=== PATIENT | female | born 1960 | race African-American/Black ===

== ENCOUNTER → 2016-10-22 | Outpatient (CLI) | payer MEDICARE, MEDICAID ==
[~2016-10-22] MED LIST: ATOR40TA16 PO; BENZ1TAB PO; BUSP10TA PO; CARV12.52 PO; CHOL1CAP34 PO; HALO2TAB PO; HYDR-3535 PO; LISI-515 PO; LOVA40TA PO; PROZ20CA11 PO; SERO200T PO; ZANT150T2 PO
[2016-10-22 12:03] LABS: ALKALINE PHOSPHATASE 122 U/L (45-117); ALT (GPT) 20 U/L (10-53); ANION GAP 9 MEQ/L (5-15); AST (GOT) 15 U/L (15-37); BICARBONATE 26.6 MEQ/L (21.0-32.0); BLOOD UREA NITROGEN 12 MG/DL (7-18); CHLORIDE 105 MEQ/L (98-107); GLOMERULAR FILTRATION RATE 42 ML/MIN (>89); GLUCOSE,FASTING 93 MG/DL (74-99); HDL CHOLESTEROL 30.5 MG/DL (40.0-60.0); LDL CHOLESTEROL 159 MG/DL (0-99); POTASSIUM 4.1 MEQ/L (3.5-5.1); SODIUM (NA) 141 MEQ/L (136-145); TOTAL BILIRUBIN ADULT 0.2 MG/DL (0.2-1.0)
== END ==
LOC: CLAB 10:54
PROVIDERS: ATTEND Family Medicine
DX: N18.9 Chronic kidney disease, unspecified (principal); I10 Essential (primary) hypertension; E55.9 Vitamin D deficiency, unspecified
CPT/HCPCS: 36415; 80053; 80061; 82306

== ENCOUNTER → 2016-10-23 | Outpatient (CLI) | payer MEDICARE, MEDICAID ==
[2016-10-23 12:37] LABS: AUTOMATED NEUTROPHIL # 2.7 TH/MM3 (1.8-7.7); BASOPHIL % 0.7 % (0.0-2.0); EOSINOPHIL # 0.5 TH/MM3 (0-0.4); EOSINOPHIL % 7.4 % (0.0-4.0); HEMATOCRIT 36.9 % (35.0-46.0); HEMO FLAGS DIFF FINAL; LYMPH % 47.7 % (9.0-44.0); LYMPHOCYTE # 3.2 TH/MM3 (1.0-4.8); MEAN CELL VOLUME 83.6 FL (80.0-100.0); MEAN CORPUSCULAR HEMOGLOBIN 28.2 PG (27.0-34.0); MEAN CORPUSCULAR HGB CONC 33.7 % (32.0-36.0); NEUT % 39.2 % (16.0-70.0); PLATELET COUNT 402 TH/MM3 (150-450); RED BLOOD COUNT 4.41 MIL/MM3 (4.00-5.30); RED CELL DISTRIBUTION WIDTH 14.7 % (11.6-17.2); WHITE BLOOD COUNT 6.8 TH/MM3 (4.0-11.0)
[2016-10-23 13:19] LABS: ALKALINE PHOSPHATASE 111 U/L (45-117); ALT (GPT) 19 U/L (10-53); ANION GAP 7 MEQ/L (5-15); AST (GOT) 16 U/L (15-37); BICARBONATE 26.4 MEQ/L (21.0-32.0); BLOOD UREA NITROGEN 16 MG/DL (7-18); CHLORIDE 106 MEQ/L (98-107); GLOMERULAR FILTRATION RATE 43 ML/MIN (>89); GLUCOSE,FASTING 91 MG/DL (74-99); HDL CHOLESTEROL 28.6 MG/DL (40.0-60.0); LDL CHOLESTEROL 165 MG/DL (0-99); POTASSIUM 4.3 MEQ/L (3.5-5.1); SODIUM (NA) 139 MEQ/L (136-145); TOTAL BILIRUBIN ADULT 0.2 MG/DL (0.2-1.0)
[2016-10-23 17:30] LABS: HEMOGLOBIN A1a 1.1 %; HEMOGLOBIN A1b 1.8 %; HEMOGLOBIN Ao 84.7 %; HEMOGLOBIN P3 3.9 %
== END ==
LOC: ELAB 09:47
DX: E03.9 Hypothyroidism, unspecified (principal); E11.9 Type 2 diabetes mellitus without complications; D64.9 Anemia, unspecified; E78.5 Hyperlipidemia, unspecified; B20 Human immunodeficiency virus [HIV] disease; A74.9 Chlamydial infection, unspecified; A54.9 Gonococcal infection, unspecified
CPT/HCPCS: 36415; 80053; 80061; 83036; 84443; 85025; 86703

== ENCOUNTER 2017-04-29 14:55 | Observation (INO) | payer MEDICARE, OTHER ==
[2017-04-29] VITALS (8 sets, daily range): BP systolic 156–224; BP diastolic 88–114; PULSE 73–80; RESP 17–20; TEMP 98–98.7; O2SAT 94–98
[~2017-04-29] VITALS: Ht 157.5 cm; Wt 46.0 kg
[~2017-04-29 14:55] MED LIST changes: +BENZ0.5T PO; -BENZ1TAB PO; -BUSP10TA PO; -CHOL1CAP34 PO; +INFL1INJ56 IM; -LOVA40TA PO; +VITA100036 PO
--- NOTE | 2017-04-29 15:15 | PD ---
Physical Exam Date Seen by Provider: Apr 29, 2017 Narrative 56-year-old black female presents to emergency department presents emergency department from her doctor's office after having an EKG performed. They felt the EKG was abnormal and advised to come to the ER. The patient's been having written chest pains now for over 2 months. She has had some associated shortness of breath but no nausea vomiting or diaphoresis. She states the pains come and go. Patient is currently pain-free. Vital signs reviewed. Pt waiting for bed placement. Data Data Last Documented VS Vital Signs Date Time Temp Pulse Resp B/P (MAP) Pulse Ox O2 Delivery O2 Flow Rate FiO2 04/29/17 14:58 98.7 76 17 168/98 (121) 94 Room Air [facility] Medical Record Reviewed: No Supervised Visit with OMAR: Kareem Canela Apr 29, 2017 15:15
--- NOTE | 2017-04-29 15:15 | PD ---
Physical Exam Date Seen by Provider: Apr 29, 2017 Narrative 56-year-old black female presents to emergency department presents emergency department from her doctor's office after having an EKG performed. They felt the EKG was abnormal and advised to come to the ER. The patient's been having written chest pains now for over 2 months. She has had some associated shortness of breath but no nausea vomiting or diaphoresis. She states the pains come and go. Patient is currently pain-free. Vital signs reviewed. Pt waiting for bed placement. Data Data Last Documented VS Vital Signs Date Time Temp Pulse Resp B/P (MAP) Pulse Ox O2 Delivery O2 Flow Rate FiO2 04/29/17 14:58 98.7 76 17 168/98 (121) 94 Room Air [facility] Medical Record Reviewed: No Supervised Visit with OMAR: Kareem Canela Apr 29, 2017 15:15
--- NOTE | 2017-04-29 15:15 | PD ---
Physical Exam Date Seen by Provider: Apr 29, 2017 Narrative 56-year-old black female presents to emergency department presents emergency department from her doctor's office after having an EKG performed. They felt the EKG was abnormal and advised to come to the ER. The patient's been having written chest pains now for over 2 months. She has had some associated shortness of breath but no nausea vomiting or diaphoresis. She states the pains come and go. Patient is currently pain-free. Vital signs reviewed. Pt waiting for bed placement. Data Data Last Documented VS Vital Signs Date Time Temp Pulse Resp B/P (MAP) Pulse Ox O2 Delivery O2 Flow Rate FiO2 04/29/17 14:58 98.7 76 17 168/98 (121) 94 Room Air [facility] Medical Record Reviewed: No Supervised Visit with OMAR: Kareem Canela Apr 29, 2017 15:15
--- NOTE | 2017-04-29 15:21 | PD ---
HPI Chief Complaint: Pain: Acute or Chronic Time Seen by Provider: 15:17 Travel History International Travel<30 days: No Contact w/Intl Traveler<30days: No Traveled to known affect area: No History of Present Illness HPI 56-year-old Afro-[place]e female presents the emergency department with history of intermittent chest pain for the past 2 months. Patient states she was seen by her primary care physician this morning and sent here for further evaluation and treatment. Patient denies any causative actions, and states she's been taking 5-6 times when she gets the pain which seems to alleviate it but it returns. Patient does have a history of increased cholesterol and records show a cardiac catheterization years ago. Patient is on cholesterol medications and hypertension meds. Is a nonsmoker. She states the pain lasts several minutes. Patient still has her gallbladder. She describes the pain as sharp. She has no nausea or vomiting. Patient is currently pain-free. She has no known drug allergies. PFSH Past Medical History Anemia: Yes Arthritis: Yes Blood Disorders: No Anxiety: No Depression: Yes Heart Rhythm Problems: No Cancer: No Cardiac Catheterization: Yes High Cholesterol: Yes Chest Pain: Yes Congestive Heart Failure: No Cerebrovascular Accident: No Coronary Artery Disease: Yes Diabetes: No Diminished Hearing: No Endocrine: No Genitourinary: No Headaches: Yes Hypertension: Yes Immune Disorder: No Kidney Stones: No Musculoskeletal: Yes (OSTEOPOROSIS) Neurologic: No Respiratory: No Migraines: No Myocardial Infarction: No Renal Failure: No Seizures: No Thyroid Disease: No Menopausal: Yes : 0 Past Surgical History Abdominal Surgery: Yes (HYSTERECTOMY) Cardiac Surgery: No Coronary Artery Bypass Graft: No Ear Surgery: No Endocrine Surgery: No Eye Surgery: No Genitourinary Surgery: No Gynecologic Surgery: Yes (HYST ) Hysterectomy: Yes (2006) Oral Surgery: No Thoracic Surgery: No Social History Alcohol Use: No Tobacco Use: Yes (cig 2-3/day) Substance Use: No Allergies-Medications (Allergen,Severity, Reaction): Coded Allergies: No Known Allergies (Verified Allergy, Unknown, 04/29/17) Reported Meds & Prescriptions Reported Meds & Active Scripts Active Lortab (Hydrocodone-Acetaminophen) 10-325 Mg Tab 1 Tab PO Q6H PRN Atorvastatin (Atorvastatin Calcium) 40 Mg Tab 40 Mg PO HS Lisinopril 20 Mg Tab 20 Mg PO DAILY Carvedilol 12.5 Mg Tab 12.5 Mg PO BID Reported Seroquel (Quetiapine Fumarate) 200 Mg Tab 200 Mg PO HS Haloperidol 2 Mg Tab 2 Mg PO HS Prozac (Fluoxetine HCl) 20 Mg Cap 40 Mg PO DAILY Physical Exam Narrative GENERAL: Patient appears in no acute distress. SKIN: Warm and dry. Normal color. Normal turgor. HEAD: Atraumatic. Normocephalic. EYES: Pupils equal and round. No scleral icterus. No injection or drainage. ENT: No nasal bleeding or discharge. Mucous membranes pink and moist. Pharynx is clear. Airway is patent. NECK: Trachea midline. Supple and nontender. CARDIOVASCULAR: Regular rate and rhythm. No murmurs gallops or rubs. RESPIRATORY: No accessory muscle use. Clear to auscultation. Breath sounds equal bilaterally. GASTROINTESTINAL: Abdomen soft, non-tender, nondistended. Hepatic and splenic margins not palpable. MUSCULOSKELETAL: Extremities without clubbing, cyanosis, or edema. No obvious deformities. NEUROLOGICAL: Awake and alert. No obvious cranial nerve deficits. Motor grossly within normal limits. Five out of 5 muscle strength in the arms and legs. Normal speech. PSYCHIATRIC: Appropriate mood and affect; insight and judgment normal. Data Data Last Documented VS Vital Signs Date Time Temp Pulse Resp B/P (MAP) Pulse Ox O2 Delivery O2 Flow Rate FiO2 04/29/17 14:58 98.7 76 17 168/98 (121) 94 Room Air Orders Orders Electrocardiogram (04/29/17 15:22) Ckmb (Isoenzyme) Profile (04/29/17 15:22) Complete Blood Count With Diff (04/29/17 15:22) Comprehensive Metabolic Panel (04/29/17 15:22) Magnesium (Mg) (04/29/17 15:22) Prothrombin Time / Inr (Pt) (04/29/17 15:22) Act Partial Throm Time (Ptt) (04/29/17 15:22) Troponin I (04/29/17 15:22) Lipase (04/29/17 15:22) Chest, Single Ap (04/29/17 15:22) Ecg Monitoring (04/29/17 15:22) Bilateral Bp Monitoring (04/29/17 15:22) Iv Access Insert/Monitor (04/29/17 15:22) Oximetry (04/29/17 15:22) Oxygen Administration (04/29/17 15:22) Aspirin Chew (Aspirin Chew) (04/29/17 15:30) Sodium Chloride 0.9% Flush (Ns Flush) (04/29/17 15:30) Sodium Chlorid 0.9% 500 Ml Inj (Ns 500 M (04/29/17 15:30) Admit Order (Ed Use Only) (04/29/17 16:44) Labs Laboratory Tests Test 04/29/17 06:45 04/29/17 15:45 Total Creatine Kinase 71 U/L 87 U/L Troponin I LESS THAN 0.02 NG/ML LESS THAN 0.02 NG/ML White Blood Count 9.9 TH/MM3 Red Blood Count 4.68 MIL/MM3 Hemoglobin 13.7 GM/DL Hematocrit 41.0 % Mean Corpuscular Volume 87.6 FL Mean Corpuscular Hemoglobin 29.2 PG Mean Corpuscular Hemoglobin Concent 33.3 % Red Cell Distribution Width 15.3 % Platelet Count 406 TH/MM3 Mean Platelet Volume 8.1 FL Neutrophils (%) (Auto) 46.7 % Lymphocytes (%) (Auto) 42.3 % Monocytes (%) (Auto) 7.2 % Eosinophils (%) (Auto) 3.6 % Basophils (%) (Auto) 0.2 % Neutrophils # (Auto) 4.6 TH/MM3 Lymphocytes # (Auto) 4.2 TH/MM3 Monocytes # (Auto) 0.7 TH/MM3 Eosinophils # (Auto) 0.4 TH/MM3 Basophils # (Auto) 0.0 TH/MM3 CBC Comment DIFF FINAL Differential Comment Prothrombin Time 11.2 SEC Prothromb Time International Ratio 1.0 RATIO Activated Partial Thromboplast Time 27.4 SEC Blood Urea Nitrogen 15 MG/DL Creatinine 1.18 MG/DL Random Glucose 75 MG/DL Total Protein 8.7 GM/DL Albumin 3.9 GM/DL Calcium Level 9.3 MG/DL Magnesium Level 2.1 MG/DL Alkaline Phosphatase 143 U/L Aspartate Amino Transf (AST/SGOT) 17 U/L Alanine Aminotransferase (ALT/SGPT) 17 U/L Total Bilirubin 0.3 MG/DL Sodium Level 138 MEQ/L Potassium Level 4.1 MEQ/L Chloride Level 106 MEQ/L Carbon Dioxide Level 23.6 MEQ/L Anion Gap 8 MEQ/L Estimat Glomerular Filtration Rate 57 ML/MIN Lipase 254 U/L [facility] Medical Decision Making Medical Screen Exam Complete: Yes Emergency Medical Condition: Yes Medical Record Reviewed: Yes Differential Diagnosis Atypical chest pain. Reflux. Esophageal spasm. Pancreatitis. Biliary colic. Gastritis. Cardiac syndrome. Narrative Course Patient is pain-free medically stable at time of exam. EKG is performed showing some flipped T waves in the lateral leads which are changed from EKG of 2015. This is reviewed with Dr. Grant. Labs ordered including CBC, CMP, cardiac panel, lipase, PT PTT and INR, Urinalysis. Chest x-ray is ordered. IV access is obtained and the patient is given 500 mL of normal saline bolus. Patient is given 324 mg aspirin by mouth. CBC, CMP, first troponin is within normal limits. Chest x-ray is unremarkable. Patient discussed with Dr. Grant recommends chest pain center admission for further evaluation and treatment as needed. Admission orders placed for chest pain center. Diagnosis Primary Impression: CHEST PAIN, UNSPECIFIED Admitting Information Admitting Physician Requests: Observation Condition: Stable David Moore Apr 29, 2017 15:21
[2017-04-29] MEDS ORDERED: SODIUM CHLORID 0.9% 500 ML INJ 500 ML IV ONE (15:30)
[2017-04-29] MEDS ORDERED: SODIUM CHLORIDE 0.9% FLUSH 10 ML FLUSH IVF PRN (15:30)
[2017-04-29] MEDS ORDERED: ASPIRIN 81 MG CHEW TAB PO ONE (15:30)
--- NOTE | 2017-04-29 16:02 | RADRPT ---
EXAM DATE/TIME: 04/29/2017 15:41 [facility] COMPARISON: No previous studies available for comparison. INDICATIONS : Chest pain, short of breath. MEDICAL HISTORY : smoker SURGICAL HISTORY : None. ENCOUNTER: Initial ACUITY: 2 days PAIN SCORE: 6/10 LOCATION: Bilateral chest FINDINGS: A single view of the chest demonstrates the lungs to be symmetrically aerated without evidence of mas s, infiltrate or effusion. The cardiomediastinal contours are unremarkable. Osseous structures are intact. CONCLUSION: No acute disease. Aristides Morales MD on April 29, 2017 at 16:01 Board Certified Radiologist. This report was verified electronically.
[2017-04-29 16:03] LABS: AUTOMATED NEUTROPHIL # 4.6 TH/MM3 (1.8-7.7); BASOPHIL % 0.2 % (0.0-2.0); EOSINOPHIL # 0.4 TH/MM3 (0-0.4); EOSINOPHIL % 3.6 % (0.0-4.0); HEMOGLOBIN 13.7 GM/DL (11.6-15.3); LYMPH % 42.3 % (9.0-44.0); LYMPHOCYTE # 4.2 TH/MM3 (1.0-4.8); MEAN CELL VOLUME 87.6 FL (80.0-100.0); MEAN CORPUSCULAR HEMOGLOBIN 29.2 PG (27.0-34.0); MEAN CORPUSCULAR HGB CONC 33.3 % (32.0-36.0); MEAN PLATELET VOLUME 8.1 FL (7.0-11.0); MONO % 7.2 % (0.0-8.0); MONOCYTE # 0.7 TH/MM3 (0-0.9); NEUT % 46.7 % (16.0-70.0); PLATELET COUNT 406 TH/MM3 (150-450); RED BLOOD COUNT 4.68 MIL/MM3 (4.00-5.30); RED CELL DISTRIBUTION WIDTH 15.3 % (11.6-17.2); WHITE BLOOD COUNT 9.9 TH/MM3 (4.0-11.0)
[2017-04-29 16:12] LABS: PROTHROMBIN TIME - PATIENT 11.2 SEC (9.8-11.6)
[2017-04-29 16:24] LABS: ALBUMIN 3.9 GM/DL (3.4-5.0); ALT (GPT) 17 U/L (10-53); AST (GOT) 17 U/L (15-37); BICARBONATE 23.6 MEQ/L (21.0-32.0); BLOOD UREA NITROGEN 15 MG/DL (7-18); CALCIUM 9.3 MG/DL (8.5-10.1); CHLORIDE 106 MEQ/L (98-107); CREATININE 1.18 MG/DL (0.50-1.00); GLOMERULAR FILTRATION RATE 57 ML/MIN (>89); GLUCOSE,RANDOM 75 MG/DL (74-106); LIPASE 254 U/L (73-393); MAGNESIUM 2.1 MG/DL (1.5-2.5); SODIUM (NA) 138 MEQ/L (136-145)
[2017-04-29 16:28] LABS: ALKALINE PHOSPHATASE 143 U/L (45-117); TOTAL BILIRUBIN ADULT 0.3 MG/DL (0.2-1.0); TOTAL PROTEIN 8.7 GM/DL (6.4-8.2); TROPONIN I LESS THAN 0.02 NG/ML (0.02-0.05)
--- NOTE | 2017-04-29 16:47 | PD ---
Data Data Last Documented VS Vital Signs Date Time Temp Pulse Resp B/P (MAP) Pulse Ox O2 Delivery O2 Flow Rate FiO2 04/29/17 14:58 98.7 76 17 168/98 (121) 94 Room Air Orders Orders Electrocardiogram (04/29/17 15:22) Ckmb (Isoenzyme) Profile (04/29/17 15:22) Complete Blood Count With Diff (04/29/17 15:) Comprehensive Metabolic Panel (04/29/17:) Magnesium (Mg) (04/29/17:) Prothrombin Time / Inr (Pt) (04/29/17:) Act Partial Throm Time (Ptt) (04/29/17:) Troponin I (04/29/17:) Lipase (04/29/17:) Chest, Single Ap (04/29/17:) Ecg Monitoring (04/29/17:) Bilateral Bp Monitoring (04/29/17:) Iv Access Insert/Monitor (04/29/17:) Oximetry (04/29/17:) Oxygen Administration (04/29/17:) Aspirin Chew (Aspirin Chew) (04/29/17 15:30) Sodium Chloride 0.9% Flush (Ns Flush) (04/29/17 15:30) Sodium Chlorid 0.9% 500 Ml Inj (Ns 500 M (04/29/17 15:30) Labs Laboratory Tests Test 04/29/17 15:45 White Blood Count 9.9 TH/MM3 Red Blood Count 4.68 MIL/MM3 Hemoglobin 13.7 GM/DL Hematocrit 41.0 % Mean Corpuscular Volume 87.6 FL Mean Corpuscular Hemoglobin 29.2 PG Mean Corpuscular Hemoglobin Concent 33.3 % Red Cell Distribution Width 15.3 % Platelet Count 406 TH/MM3 Mean Platelet Volume 8.1 FL Neutrophils (%) (Auto) 46.7 % Lymphocytes (%) (Auto) 42.3 % Monocytes (%) (Auto) 7.2 % Eosinophils (%) (Auto) 3.6 % Basophils (%) (Auto) 0.2 % Neutrophils # (Auto) 4.6 TH/MM3 Lymphocytes # (Auto) 4.2 TH/MM3 Monocytes # (Auto) 0.7 TH/MM3 Eosinophils # (Auto) 0.4 TH/MM3 Basophils # (Auto) 0.0 TH/MM3 CBC Comment DIFF FINAL Differential Comment Prothrombin Time 11.2 SEC Prothromb Time International Ratio 1.0 RATIO Activated Partial Thromboplast Time 27.4 SEC Blood Urea Nitrogen 15 MG/DL Creatinine 1.18 MG/DL Random Glucose 75 MG/DL Total Protein 8.7 GM/DL Albumin 3.9 GM/DL Calcium Level 9.3 MG/DL Magnesium Level 2.1 MG/DL Alkaline Phosphatase 143 U/L Aspartate Amino Transf (AST/SGOT) 17 U/L Alanine Aminotransferase (ALT/SGPT) 17 U/L Total Bilirubin 0.3 MG/DL Sodium Level 138 MEQ/L Potassium Level 4.1 MEQ/L Chloride Level 106 MEQ/L Carbon Dioxide Level 23.6 MEQ/L Anion Gap 8 MEQ/L Estimat Glomerular Filtration Rate 57 ML/MIN Total Creatine Kinase 87 U/L Troponin I LESS THAN 0.02 NG/ML Lipase 254 U/L MDM Supervised Visit with OMAR: Yes Narrative Course The history, exam, and medical decision-making in the associated mid-level provider note were completed with my assistance. I reviewed and agree with the findings presented. I attest that I had a [id number] encounter with the patient on the same day, and personally performed and documented my assessment and findings in the medical record. *My assessment and Findings: 56 year-old woman with chest pain. Ongoing for several weeks. There is definitely an exertional component to low but also seems a little bit less predictable the neck, some as coming on at rest. History is moderately suspicious for ACS. She reportedly had a heart catheterization in the past. I don't think she has any known history of heart disease. She saw her primary doctor sent her over some new lateral T-wave inversions on her EKG. We'll recommend admission to the chest pain Center for further evaluation. Condition: Stable Dale Grant MD Apr 29, 2017 16:47
[2017-04-29] MEDS ORDERED: CARVEDILOL 12.5 MG TAB PO ONE (17:15)
[2017-04-29] MEDS ORDERED: NITROGLYCERIN 0.4 MG SL 25 TABS/BTL SL PRN (17:15)
[2017-04-29] MEDS ORDERED: LISINOPRIL 20 MG TAB PO ONE (17:15)
[2017-04-29] MEDS ORDERED: ACETAMINOPHEN 500 MG CPLT PO PRN (17:15)
[2017-04-29] MEDS ORDERED: ONDANSETRON HCL 4 MG/2 ML VIAL IV PUSH PRN (17:15)
--- NOTE | 2017-04-29 17:31 | EKG ---
Date Performed: 04/29/2017 Time Performed: 15:28:39 PTAGE: 56 years EKG: Sinus rhythm POSSIBLE LEFT ATRIAL ENLARGEMENT MODERATE T-WAVE ABNORMALITY, CONSIDER LATERAL ISCHEMIA ABNORMAL ECG Since PREVIOUS TRACING , now with T wave inversions PREVIOUS TRACIN03/31/2012 06.19 DOCTOR: Elise Munguia Interpretating Date/Time 04/29/2017 17:29:53
[2017-04-29] MEDS ORDERED: cloNIDine HCL 0.1 MG TAB PO PRN (18:15)
[2017-04-29 19:37] LABS: TROPONIN I LESS THAN 0.02 NG/ML (0.02-0.05)
[2017-04-29] MEDS: SODIUM CHLORIDE 0.9% FLUSH 10 ML FLUSH IV FLUSH SCH (21:41)
[2017-04-29 22:25] LABS: TROPONIN I LESS THAN 0.02 NG/ML (0.02-0.05)
[2017-04-30] VITALS (7 sets, daily range): BP systolic 117–206; BP diastolic 77–110; PULSE 69–73; RESP 16–18; TEMP 97.9–98.2; O2SAT 96–99
--- NOTE | 2017-04-30 08:29 | HHI.HP ---
HPI Primary Care Physician Kiara Persaud , R3 MD [place] Chief Complaint Chest pain History of Present Illness 56-year-old female with known hyperlipidemia, hypertension, and current smoker presents to the emergency room, as directed by her PCP, for further evaluation of chest pain. Onset 2 months. Location substernal. Characterized as sharp. No radiation. Duration generally lasts 15 minutes. Reporting intermittent chest pain "every other day, or so." Days she experiences chest pain, occurs a few times daily. No known precipitating factors. Initially, thought discomfort was ingestion. Took Tums without relief. No known relieving factors. Denies similar pain in the past. Review of Systems General: No fatigue,weakness, fever, chills, or recent illness. Has been in her general state of health. HEENT: No LUNA, no nasal congestion or drainage CV: As stated above. Currently she is chest pain-free. No palpitations or dizziness. Known mild or very artery disease. RESP: No SOB, cough, wheeze, sputum production, recent URI, or history of asthma. GI: No nausea, vomiting, bowel changes, change in appetite, no unintentional weight gain or weight loss. : No dysuria EXT: No lower leg edema, no paraesthesias MS: No discomfort, change in ROM, injury or recent fall or trauma NEURO: No change in memory, difficulty with balance, LOC, motor/sensory deficits PSYCH: Reports anxiety and depression stable on current medications. Past Family Social History Allergies: Coded Allergies: No Known Allergies (Verified Allergy, Unknown, 04/29/17) Past Medical History Hyperlipidemia, hypertension, osteoarthritis, schizophrenia, DJD, CKD, depression, chronic back pain, CAD Past Surgical History Hysterectomy, renal stent Reported Medications Reported Meds & Active Scripts Active Lortab (Hydrocodone-Acetaminophen) 10-325 Mg Tab 1 Tab PO Q6H PRN Atorvastatin (Atorvastatin Calcium) 40 Mg Tab 40 Mg PO HS Lisinopril 20 Mg Tab 20 Mg PO DAILY Carvedilol 12.5 Mg Tab 12.5 Mg PO BID Seroquel (Quetiapine Fumarate) 200 Mg Tab 200 Mg PO HS Haloperidol 2 Mg Tab 2 Mg PO HS Prozac (Fluoxetine HCl) 20 Mg Cap 40 Mg PO DAILY Active Ordered Medications Current Medications Medications (Trade) Dose Ordered Sig/Emilio Route Start Time Stop Time Status Last Admin (NS Flush) 2 ml UNSCH PRN IVF 04/29/17 15:30 (NS Flush) 2 ml BID IV FLUSH 04/29/17 21:00 04/29/17 21:41 (Tylenol) 500 mg Q4H PRN PO 04/29/17 17:15 (Zofran Inj) 4 mg Q6H PRN IV PUSH 04/29/17 17:15 (Nitrostat Sl) 0.4 mg Q5M PRN SL 04/29/17 17:15 (Aspirin) 325 mg DAILY PO 04/30/17 09:00 (Catapres) 0.1 mg Q6H PRN PO 04/29/17 18:15 Family History Noncontributory for early onset cardiovascular disease. Social History Known hypertension and hyperlipidemia. No known diabetes. Current smoker, 1 pack/weekly, decreased from 1 pack daily. Rare alcohol use. Endorses is sedentary lifestyle. Past cardiac testing 05/08/10 Cardiac catheterization (Dr. Munguia) Conclusions 1. Normal LV function. 2. Mild coronary artery disease. 3. Normal ascending aorta. 4. Noncardiac chest pain. Physical Exam Vital Signs Vital Signs Date Time Temp Pulse Resp B/P (MAP) Pulse Ox O2 Delivery O2 Flow Rate FiO2 04/30/17 08:22 98.1 70 16 175/94 (121) 97 04/30/17 03:28 97.9 73 17 117/77 (90) 99 04/30/17 00:41 97.9 73 18 137/96 (110) 99 04/29/17 23:00 73 04/29/17 20:30 97 21 04/29/17 18:56 98.0 80 19 183/88 (119) 98 04/29/17 18:06 78 20 156/93 (114) 98 Room Air 04/29/17 17:55 97 21 04/29/17 17:15 97 Room Air 04/29/17 17:07 77 18 224/103 (143) 97 Room Air 184/114 (137) 04/29/17 14:58 98.7 76 17 168/98 (121) 94 Room Air Physical Exam GENERAL: Alert WN, WD, NAD, pleasant, female HEAD: NC, AT NECK: Supple, no masses, trachea midline CV: RRR, 1/6 systolic murmur, rub, gallop, no JVD, S1-S2 no S3-S4. No carotid bruits. RESP: Clear lungs throughout bilateral, no crackles, wheeze, rhonchi, symmetrical chest rise, nonlabored, able to speak in full sentences ABD: Soft, NT, ND, no masses, positive bowel tones EXT: Pulses +24, no dependent edema MS: Normal tone 4 extremities, nontender, no obvious deformities, full range of motion NEURO: CN II through CN XII grossly intact, motor strength 5/5 PSYCH: A+O 3, pleasant affect, appropriate speech, appropriate mood and affect , insight and judgment SKIN: Normal turgor, normal texture, no lesions, no rashes Laboratory Laboratory Tests Test 04/29/17 15:45 04/29/17 21:50 White Blood Count 9.9 Red Blood Count 4.68 Hemoglobin 13.7 Hematocrit 41.0 Mean Corpuscular Volume 87.6 Mean Corpuscular Hemoglobin 29.2 Mean Corpuscular Hemoglobin Concent 33.3 Red Cell Distribution Width 15.3 Platelet Count 406 Mean Platelet Volume 8.1 Neutrophils (%) (Auto) 46.7 Lymphocytes (%) (Auto) 42.3 Monocytes (%) (Auto) 7.2 Eosinophils (%) (Auto) 3.6 Basophils (%) (Auto) 0.2 Neutrophils # (Auto) 4.6 Lymphocytes # (Auto) 4.2 Monocytes # (Auto) 0.7 Eosinophils # (Auto) 0.4 Basophils # (Auto) 0.0 CBC Comment DIFF FINAL Differential Comment Prothrombin Time 11.2 Prothromb Time International Ratio 1.0 Activated Partial Thromboplast Time 27.4 Blood Urea Nitrogen 15 Creatinine 1.18 Random Glucose 75 Total Protein 8.7 Albumin 3.9 Calcium Level 9.3 Magnesium Level 2.1 Alkaline Phosphatase 143 Aspartate Amino Transf (AST/SGOT) 17 Alanine Aminotransferase (ALT/SGPT) 17 Total Bilirubin 0.3 Sodium Level 138 Potassium Level 4.1 Chloride Level 106 Carbon Dioxide Level 23.6 Anion Gap 8 Estimat Glomerular Filtration Rate 57 Total Creatine Kinase 87 76 Troponin I LESS THAN 0.02 LESS THAN 0.02 Lipase 254 Result Diagram: 04/29/17 1545 04/29/17 1545 Imaging Last Impressions Chest X-Ray 04/29/17 1522 Signed Impressions: Service Date/Time: Saturday, April 29, 2017 15:41 - CONCLUSION: No acute disease. Aristides Morales MD Course EKG Normal sinus rhythm, T-wave inversions anterolaterally Caprini VTE Risk Assessment Caprini VTE Risk Assessment: No/Low Risk (score <= 1) Caprini Risk Assessment Model Point Value = 1 Point Value = 2 Point Value = 3 Point Value = 5 Age 41-60 Minor surgery BMI > 25 kg/m2 Swollen legs Varicose veins or History of unexplained or recurrent spontaneous Oral contraceptives or hormone replacement Sepsis (< 1 month) Serious lung disease, including pneumonia (< 1 month) Abnormal pulmonary function Acute myocardial infarction Congestive heart failure (< 1 month) History of inflammatory bowel disease Medical patient at bed rest Age 61-74 Arthroscopic surgery Major open surgery (> 45 min) Laparoscopic surgery (> 45 min) Malignancy Confined to bed (> 72 hours) Immobilizing plaster cast Central venous access Age >= 75 History of VTE Family history of VTE Factor V Leiden Prothrombin [id number] Lupus anticoagulant Anticardiolipin antibodies Elevated serum homocysteine Heparin-induced thrombocytopenia Other congenital or acquired thrombophilia Stroke (< 1 month) Elective arthroplasty Hip, pelvis, or leg fracture Acute spinal cord injury (< 1 month) Prophylaxis Regimen Total Risk Factor Score Risk Level Prophylaxis Regimen 0-1 Low Early ambulation 2 Moderate Order ONE of the following: *Sequential Compression Device (SCD) *Heparin 5000 units SQ BID 3-4 Higher Order ONE of the following medications: *Heparin 5000 units SQ TID *Enoxaparin/Lovenox 40 mg SQ daily (WT < 150 kg, CrCl > 30 mL/min) *Enoxaparin/Lovenox 30 mg SQ daily (WT < 150 kg, CrCl > 10-29 mL/min) *Enoxaparin/Lovenox 30 mg SQ BID (WT < 150 kg, CrCl > 30 mL/min) AND/OR *Sequential Compression Device (SCD) 5 or more Highest Order ONE of the following medications: *Heparin 5000 units SQ TID (Preferred with Epidurals) *Enoxaparin/Lovenox 40 mg SQ daily (WT < 150 kg, CrCl > 30 mL/min) *Enoxaparin/Lovenox 30 mg SQ daily (WT < 150 kg, CrCl > 10-29 mL/min) *Enoxaparin/Lovenox 30 mg SQ BID (WT < 150 kg, CrCl > 30 mL/min) AND *Sequential Compression Device (SCD) Assessment and Plan Assessment and Plan #1 Atypical chest pain-admitted to chest pain center. Ruled out with 3 sets of EKGs and cardiac enzymes. Seen and evaluated by Dr. Chidi Hernandez. Proceed with chemical stress test. Discussed likely discharge if chemical stress test does not suggest stress-induced ischemia. Patient is agreeable to plan of care. #2 Hypertension-continue lisinopril, discussed importance of tight blood pressure control, encouraged low sodium diet of 2 gram sodium/daily. #3 Hyperlipidemia-continue atorvastatin #4 Depression-continue Prozac and Seroquel #5 History of CAD-continue carvedilol, encouraged increasing daily activity. Angela Villanueva Apr 30, 2017 08:29
[2017-04-30] MEDS ORDERED: ASPIRIN 325 MG TAB PO SCH (09:00)
[2017-04-30] MEDS: SODIUM CHLORIDE 0.9% FLUSH 10 ML FLUSH IV FLUSH SCH (09:19)
[2017-04-30] MEDS ORDERED: REGADENOSON INJ 0.4 MG/5 ML SYR ONE (10:24)
--- NOTE | 2017-04-30 11:31 | RADRPT ---
EXAM DATE/TIME: 04/30/2017 09:43 [facility] COMPARISON: No previous studies available for comparison. INDICATIONS : Angina. DOSE: 25.8 mCi Tc99m Myoview at stress. 8.6 mCi Tc99m Myoview at rest. 0.4 mg Lexiscan STRESS SYMPTOMS: Short of breath and abdominal cramps. EJECTION FRACTION: 62% MEDICAL HISTORY : Hypertension. Myocardial infarction. SURGICAL HISTORY : Hysterectomy. Tubal ligation. ENCOUNTER: Initial ACUITY: 2 days PAIN SCALE: 2/10 LOCATION: chest discomfort TECHNIQUE: The patient underwent pharmacologic stress with infusion of prescribed dose. Continuous ECG tracing was monitored during stress. Gated SPECT imaging was performed after stress and conventional SPECT i maging was performed at rest. The examination was performed on a SPECT/CT scanner, both attenuation and non-corrected datasets were reviewed. FINDINGS: DISTRIBUTION: The maximum perfused segment at stress is in the septum and lateral wall. Moderate gut activity does obscure the inferior wall. PERFUSION STUDY: The pattern of perfusion at stress is within normal limits. GATED STUDY: There is intact wall motion and thickening without hypokinetic or dyskinetic segments. CONCLUSION: Negative for stress-induced ischemia. Moderate gut activity does obscure the inferior wall. Correlation is suggested.. RISK CATEGORY: Low (<1% Annual Mortality Rate) Zaid Whyte MD FACR on April 30, 2017 at 11:28 Board Certified Radiologist. This report was verified electronically.
--- NOTE | 2017-04-30 11:42 | EKG ---
Date Performed: 04/29/2017 Time Performed: 21:55:41 PTAGE: 56 years EKG: Sinus rhythm POSSIBLE LEFT ATRIAL ENLARGEMENT MODERATE T-WAVE ABNORMALITY, CONSIDER ANTEROLATERAL ISCHEMIA ABNORM AL ECG PREVIOUS TRACING : 04/29/2017 19.11 Since previous tracing, no significant change noted DOCTOR: Chidi Hernandez Interpretating Date/Time 04/30/2017 11:40:50
--- NOTE | 2017-04-30 11:43 | EKG ---
Date Performed: 04/29/2017 Time Performed: 19:11:41 PTAGE: 56 years EKG: Sinus rhythm POSSIBLE LEFT ATRIAL ENLARGEMENT MODERATE T-WAVE ABNORMALITY, CONSIDER ANTEROLATERAL ISCHEMIA ABNORM AL ECG PREVIOUS TRACING : 04/29/2017 15.28 Since previous tracing, no significant change noted DOCTOR: Chidi Hernandez Interpretating Date/Time 04/30/2017 11:42:18
--- NOTE | 2017-04-30 11:47 | TR ---
Date Performed: 04/30/2017 Time Performed: 10:34:50 DOCTOR: Chidi Hernandez DRUG LIST: CLINICAL HISTORY: REASON FOR TEST: Angina REASON FOR ENDING: OBSERVATION: CONCLUSION: Lexiscan stress test was performed under standard four minute protocol. Radionuclid e was injected one minute prior to ending the test. No electrocardiographic abormalities were present to suggest ischemia. Nuclear imaging and interpretation are pending. COMMENTS:
--- NOTE | 2017-04-30 11:49 | HHI.DCPOC ---
Discharge Care Plan Diagnosis: (1) Atypical chest pain (2) Hypertension (3) GERD (gastroesophageal reflux disease) Goals to Promote Your Health * To prevent worsening of your condition and complications * To maintain your health at the optimal level Directions to Meet Your Goals Take your medications as prescribed Follow your dietary instruction Follow activity as directed Keep your appointments as scheduled Take your immunizations and boosters as scheduled If your symptoms worsen call your PCP, if no PCP go to Urgent Care Center or Emergency Room Smoking is Dangerous to Your Health. Avoid second hand smoke Call the 24-hour hour crisis hotline for domestic abuse at Angela Villanueva Apr 30, 2017 11:49
--- NOTE | 2017-04-30 11:49 | HHI.DCPOC ---
Discharge Care Plan Diagnosis: (1) Atypical chest pain (2) Hypertension (3) GERD (gastroesophageal reflux disease) Goals to Promote Your Health * To prevent worsening of your condition and complications * To maintain your health at the optimal level Directions to Meet Your Goals Take your medications as prescribed Follow your dietary instruction Follow activity as directed Keep your appointments as scheduled Take your immunizations and boosters as scheduled If your symptoms worsen call your PCP, if no PCP go to Urgent Care Center or Emergency Room Smoking is Dangerous to Your Health. Avoid second hand smoke Call the 24-hour hour crisis hotline for domestic abuse at Angela Villanueva Apr 30, 2017 11:49
--- NOTE | 2017-04-30 11:49 | HHI.DCPOC ---
Discharge Care Plan Diagnosis: (1) Atypical chest pain (2) Hypertension (3) GERD (gastroesophageal reflux disease) Goals to Promote Your Health * To prevent worsening of your condition and complications * To maintain your health at the optimal level Directions to Meet Your Goals Take your medications as prescribed Follow your dietary instruction Follow activity as directed Keep your appointments as scheduled Take your immunizations and boosters as scheduled If your symptoms worsen call your PCP, if no PCP go to Urgent Care Center or Emergency Room Smoking is Dangerous to Your Health. Avoid second hand smoke Call the 24-hour hour crisis hotline for domestic abuse at Angela Villanueva Apr 30, 2017 11:49
[2017-04-30] MEDS ORDERED: LISINOPRIL 20 MG TAB PO SCH (12:00)
[2017-04-30] MEDS ORDERED: CARVEDILOL 12.5 MG TAB PO SCH (12:00)
[2017-04-30] MEDS ORDERED: FLUoxetine HCL 20 MG CAP PO SCH (12:30)
[2017-04-30] MEDS ORDERED: ATORVASTATIN 40 MG TAB PO SCH (21:00)
[2017-04-30] MEDS ORDERED: QUEtiapine FUMARATE 200 MG TAB PO SCH (21:00)
== END 2017-04-30 15:06 | disposition home or self-care (01) ==
LOC: NEPC 14:55 → NEDA 16:46 → NEPFCDU 18:30
PROVIDERS: ADMIT Internal Medicine Interventional Cardiology; ATTEND Internal Medicine Interventional Cardiology
DX: R07.89 Other chest pain (principal); I12.9 Hypertensive chronic kidney disease with stage 1 through stage 4 chronic kidney disease, or unspecified chronic kidney disease; K21.9 Gastro-esophageal reflux disease without esophagitis; I25.10 Atherosclerotic heart disease of native coronary artery without angina pectoris; N18.9 Chronic kidney disease, unspecified; R06.02 Shortness of breath; D64.9 Anemia, unspecified; E78.00 Pure hypercholesterolemia, unspecified; R51 Headache; M81.0 Age-related osteoporosis without current pathological fracture; M54.9 Dorsalgia, unspecified; M19.90 Unspecified osteoarthritis, unspecified site; G89.29 Other chronic pain; F17.210 Nicotine dependence, cigarettes, uncomplicated
CPT/HCPCS: 71010; 78452; 80053; 82550; 83690; 83735; 84484; 85025; 85610; 85730; 93005; 93017; 96360; 96361; 99285; A9502; G0378; J2785; J7040

== ENCOUNTER → 2017-12-10 | Outpatient (CLI) | payer MEDICARE, OTHER ==
[~2017-12-10] MED LIST changes: +HYDR-3366 PO; -HYDR-3535 PO; -INFL1INJ56 IM; +RANI150T PO; -VITA100036 PO; -ZANT150T2 PO
[2017-12-10 10:40] LABS: HEMATOCRIT 40.8 % (35.0-46.0); HEMOGLOBIN 13.7 GM/DL (11.6-15.3); MEAN CELL VOLUME 84.6 FL (80.0-100.0); MEAN CORPUSCULAR HEMOGLOBIN 28.5 PG (27.0-34.0); MEAN CORPUSCULAR HGB CONC 33.7 % (32.0-36.0); MEAN PLATELET VOLUME 8.4 FL (7.0-11.0); PLATELET COUNT 396 TH/MM3 (150-450); RED BLOOD COUNT 4.82 MIL/MM3 (4.00-5.30); RED CELL DISTRIBUTION WIDTH 15.5 % (11.6-17.2); WHITE BLOOD COUNT 8.6 TH/MM3 (4.0-11.0)
[2017-12-10 10:46] LABS: AST (GOT) 22 U/L (15-37); BICARBONATE 22.8 MEQ/L (21.0-32.0); BLOOD UREA NITROGEN 16 MG/DL (7-18); CALCIUM 9.9 MG/DL (8.5-10.1); CHLORIDE 108 MEQ/L (98-107); CREATININE 1.28 MG/DL (0.50-1.00); GLOMERULAR FILTRATION RATE 52 ML/MIN (>89); GLUCOSE,FASTING 104 MG/DL (74-99); SODIUM (NA) 142 MEQ/L (136-145)
[2017-12-10 10:56] LABS: ALKALINE PHOSPHATASE 137 U/L (45-117); ALT (GPT) 26 U/L (10-53); CHOLESTEROL 149 MG/DL (120-200); CHOLESTEROL/ HDL RATIO 3.29 RATIO; HDL CHOLESTEROL 45.2 MG/DL (40.0-60.0); LDL CHOLESTEROL 81 MG/DL (0-99); TOTAL BILIRUBIN ADULT 0.3 MG/DL (0.2-1.0); TOTAL PROTEIN 8.9 GM/DL (6.4-8.2); TRIGLYCERIDES 114 MG/DL (42-150)
[2017-12-10 16:24] LABS: HEMOGLOBIN A1C 5.4 % (4.3-6.0)
== END ==
LOC: CLAB 10:01
DX: N28.9 Disorder of kidney and ureter, unspecified (principal); Z79.899 Other long term (current) drug therapy
CPT/HCPCS: 36415; 80053; 80061; 83036; 84146; 84443; 85027